=== PATIENT | female | born 1990 | race African-American/Black ===

== ENCOUNTER 2019-05-24 17:04 | Emergency (ER) | payer OTHER ==
[~2019-05-24] VITALS: Ht 152.4 cm; Wt 84.8 kg
[2019-05-24] MEDS ORDERED: HYDR-501 PO (17:36)
--- NOTE | 2019-05-24 17:50 | NUR ---
Dr Hood is at bedside doing his MSE.
[2019-05-24] MEDS ORDERED: EPINEPHRINE 1 MG/1 ML AMP ONE (18:00)
[2019-05-24] MEDS ORDERED: methylPREDNISolone SOD SUCC 125 MG/2 ML VIAL IV ONE (18:00)
[2019-05-24] MEDS ORDERED: methylPREDNISolone SOD SUCC 125 MG/2 ML VIAL ONE (18:00)
[2019-05-24] MEDS ORDERED: EPINEPHRINE 1 MG/1 ML AMP IM ONE (18:00)
[2019-05-24] MEDS ORDERED: FAMOTIDINE. 20 MG/2 ML VIAL IV ONE ×2 (18:00→18:01)
[2019-05-24] MEDS ORDERED: diphenhydrAMINE 50 MG/1 ML VIAL IV ONE (18:00)
[2019-05-24] MEDS ORDERED: diphenhydrAMINE 50 MG/1 ML VIAL ONE (18:03)
[2019-05-24] MEDS ORDERED: KETAMINE HCL 500 MG/10 ML INJ ONE (18:42)
--- NOTE | 2019-05-24 19:01 | NUR ---
Patient reports that her facial itchiness decreased, c/o dry throat & tremors, respiration:easy , no wheezes heard.
[2019-05-24 19:06] LABS: *URINE HCG, QUAL NEGATIVE (NEGATIVE)
[2019-05-24] MEDS ORDERED: IV NS 1000 ML 1,000 ML IV ONE (19:45)
[2019-05-24 19:54] LABS: BASOPHILS % (AUTO) 0.3 % (0.0-2.0); EOSINOPHILS # (AUTO) 0.1 K/uL (0.0-0.7); HEMATOCRIT 37.2 % (31.2-41.9); HEMOGLOBIN 12.1 g/dL (10.9-14.3); LYMPHOCYTES # (AUTO) 1.3 K/uL (20.0-40.0); LYMPHOCYTES % (AUTO) 16.3 % (20.5-51.5); MEAN CORPUSCULAR HEMOGLOBIN 29.4 uug (24.7-32.8); MEAN CORPUSCULAR HGB CONC 33 g/dL (32.3-35.6); MEAN CORPUSCULAR VOLUME 90.3 fL (75.5-95.3); MONOCYTES # (AUTO) 0.1 K/uL (2.0-10.0); MONOCYTES % (AUTO) 1.9 % (0.0-11.0); NEUTROPHILS # (AUTO) 6.3 K/uL (1.8-8.9); NEUTROPHILS % (AUTO) 80.5 % (38.5-71.5); PLATELET COUNT (AUTO) 240 K/uL (179-408); RED BLOOD CELL COUNT(AUTO) 4.12 MIL/uL (3.63-4.92); WHITE BLOOD COUNT (AUTO) 7.8 K/uL (3.8-11.8)
[2019-05-24 20:02] LABS: CREATININE 1.1 mg/dL (0.6-1.3); POTASSIUM 4.1 mmol/L (3.5-5.1)
[2019-05-24 20:11] LABS: BILIRUBIN,TOTAL 0.3 mg/dL (0.2-1.0); TOTAL PROTEIN, SERUM 8.5 g/dL (6.4-8.2)
[2019-05-24] MEDS ORDERED: MAG HYDROX/AL HYDROX/SIMETH 30 ML LIQUID UDC PO ONE (20:15)
[2019-05-24] MEDS ORDERED: MAG HYDROX/AL HYDROX/SIMETH 30 ML LIQUID UDC ONE (21:03)
--- NOTE | 2019-05-24 21:33 | NUR ---
Patient discharged to home in stable conditon. Written and verbal after care instructions given. Patient verbalizes understanding of instructions. Pt ambulated out of ER with steady gait, no acute signs of distress, VSS, all belongings taken, IV site discontinued.
[2019-05-24 21:34] VITALS: BP 123/82
== END 2019-05-24 21:34 | disposition home or self-care (01) ==
LOC: ER 17:06
DX: T78.40XA Allergy, unspecified, initial encounter (principal); R07.9 Chest pain, unspecified; R42 Dizziness and giddiness; F17.210 Nicotine dependence, cigarettes, uncomplicated; F12.10 Cannabis abuse, uncomplicated; Z91.018 Allergy to other foods; Z79.899 Other long term (current) drug therapy
CPT/HCPCS: 36415; 71045; 80053; 84484; 84702; 84703; 85025; 93005; 96361; 96372; 96374; 96375; 99284; J0171; J1200; J2930; J3490 ×2; 70030-TC; A4663; J7030